=== PATIENT | male | born 1955 | race Caucasian/White ===

== ENCOUNTER → 2020-09-26 | Outpatient (CLI) | payer BC | LOC: KOH-I 16:00 | DX: R22.1 Localized swelling, mass and lump, neck (principal); R49.9 Unspecified voice and resonance disorder; E04.8 Other specified nontoxic goiter | CPT/HCPCS: 76536 ==

== ENCOUNTER → 2020-10-30 | Outpatient (CLI) | payer BC | LOC: CT 12:12 | DX: E04.9 Nontoxic goiter, unspecified (principal); R59.0 Localized enlarged lymph nodes; R22.1 Localized swelling, mass and lump, neck | CPT/HCPCS: 36415; 70491; 82565; 84520; Q9963 ==